=== PATIENT | male | born 1990 | race Caucasian/White ===

== ENCOUNTER 2022-08-05 10:12 | Emergency (ER) | payer OTHER ==
[~2022-08-05] VITALS: Ht 172.7 cm; Wt 70.3 kg
[2022-08-05 10:31] VITALS: BP 123/79
--- NOTE | 2022-08-05 10:37 | NUR ---
PATIENT AMBULATED TO BED 3
--- NOTE | 2022-08-05 10:39 | NUR ---
PATIENT STATED THAT HIS RIGHT BUTTOCKS HURTS WHEN SITTING, STANDING, OR WHEN USING THE RESTROOM. STATED THAT "I THINK ITS MY Sciatica AGAIN"
[2022-08-05] MEDS ORDERED: KETOROLAC 60 MG/2 ML VIAL IM ONE (11:00)
[2022-08-05] MEDS ORDERED: NAPR-1704 PO (11:00)
[2022-08-05] MEDS ORDERED: CARI350T PO (11:00)
[2022-08-05] MEDS ORDERED: TRAM-748 PO (11:00)
--- NOTE | 2022-08-05 11:14 | NUR ---
Patient discharged with v/s stable. Written and verbal after care instructions given and explained. Patient alert, oriented and verbalized understanding of instructions. Ambulatory with steady gait. All questions addressed prior to discharge. ID band removed. Patient advised to follow up with PMD. Rx of SOMA, NAPROSYN, ULTRAM given. Patient educated on indication of medication including possible reaction and side effects. Opportunity to ask questions provided and answered.
[2022-08-05 11:45] VITALS: BP 126/80
== END 2022-08-05 11:14 | disposition home or self-care (01) ==
LOC: MED 10:12
DX: M54.50 Low back pain, unspecified (principal); Z79.899 Other long term (current) drug therapy; Z79.1 Long term (current) use of non-steroidal anti-inflammatories (NSAID)
CPT/HCPCS: 96372; 99283; J1885